=== PATIENT | female | born 1955 | race Caucasian/White ===

== ENCOUNTER → 2024-04-14 | Day surgery (SDC) | payer OTHER, BC ==
--- NOTE | 2024-04-14 14:06 | RAD REPORT ---
PROCEDURE: ULTRASOUND GUIDED BIOPSY Pre-procedure diagnosis: Left thyroid nodule Post-procedure diagnosis: Same as above. CLINICAL INDICATION: Histopathologic diagnosis and molecular characterization. Female, 69 years old. E04.1 Previous biopsy of same target: No Additional clinical history: None. COMPLICATIONS: No immediate complications. IMPRESSION: Percutaneous ultrasound-guided FNA biopsy of the dominant left thyroid nodule Additional procedure(s): None. PLAN: Specimen sent for evaluation. PROCEDURE DETAILS: Consent: Informed consent for the procedure including risks, benefits and alternatives was obtained a nd time-out was performed prior to the procedure. Preparation: The site was prepared and draped using all elements of maximal sterile barrier technique including sterile gloves, sterile gown, cap, mask, large sterile sheet, sterile ultrasound probe cover as needed, hand hygiene and cutaneous antisepsis with 2% chlorhexidine. Sedation: No sedation Imaging prior to biopsy: The patient was positioned supine and initial imaging of the neck was perfor med. Biopsy: Local anesthesia was administered. Under fluoroscopic guidance, multiple 25-gauge biopsy need les were advanced to the target nodule, and FNA aspiration/biopsy was performed. Biopsy needles were removed and a sterile dressing was applied. Number of specimens: 5 On-site biopsy touch preparation: None. Additional sampling description: None. Preliminary assessment of sample adequacy: Adequate Tract embolization: None. Post-biopsy imaging findings: No immediate complications seen. Contrast used: None. Estimated blood loss: Less than 10 mL.
== END ==
LOC: FNA 09:27
PROVIDERS: ATTEND Family Medicine
PROC: 0GBG3ZX Excision of Left Thyroid Gland Lobe, Percutaneous Approach, Diagnostic (ICD-10-PCS; principal; 2024-04-14)
DX: C73 Malignant neoplasm of thyroid gland (principal)
CPT/HCPCS: 88162

== ENCOUNTER 2024-08-04 18:25 | Emergency (ER) | payer OTHER, BC ==
[2024-08-04] MEDS ORDERED: LIDOCAINE HCL JELLY 2% 6 ML SYRINGE TOP ONE (19:23)
--- NOTE | 2024-08-04 20:32 | RAD REPORT ---
EXAMINATION: Facial Bones W/ Mpr CLINICAL INDICATION: Female, 69 years old. swelling under tongue TECHNIQUE: Axial images were obtained through the facial bones and orbits without intravenous contras t. Sagittal and coronal reconstructions were created from the data. One or more of the following dose reduction techniques were used: Automated exposure control, adjustment of the mA and/or kV accor ding to patient size, and/or iterative reconstruction. Unless otherwise specified, incidental findings do not require dedicated imaging follow-up. [id number]. COMPARISON: 03/21/24 FINDINGS: SOFT TISSUE: New 5 mm somewhat linear structure along the undersurface of the tongue suspicious for a fracture off of the inner surface of the mandible where there is likely a donor site. See image 29, series 201 and image 44, series 203. This is new since the prior CT from 03/21/24. BONES: No evidence of fracture, dislocation, or aggressive osseous lesions. No lesion of the visuali zed skull base or calvarium. ORBITS: The globes are intact. No intraorbital hemorrhage or mass. SINUSES: The paranasal sinuses and tympanomastoid cavities are predominantly clear. BRAIN: No acute abnormalities in the visualized intracranial structures. IMPRESSION: New fragment along the floor of the mouth and undersurface of the tongue suspicious for an acute frac ture off of the inner surface of the mandible. This is in the region of the right mandibular first and second premolars.
--- NOTE | 2024-08-04 21:51 | EDPHYS ---
Physician Documentation [facility] Name: Luz Pierce Age: 69 yrs Sex: Female : 1955 Arrival Date: 08/04/2024 Time: 18:25 Bed 11 Private MD: ED Physician Salbador Bledsoe HPI: 08/04 19:20 This 69 yrs old Female presents to ER via Ambulatory with complaints of Foreign Body in cp Mouth. 19:20 The patient presents with pain, sharp area irritating tongue. The problem is located in cp the underside of tongue. Onset: The symptoms/episode began/occurred noticed today. 19:20 Associated signs and symptoms: Pertinent positives: pain, Pertinent negatives: fever, cp swelling, mandibular, injury. Severity of symptoms: in the emergency department the symptoms are unchanged, despite home interventions. Historical: - Allergies: 18:41 Sulfa (Sulfonamide Antibiotics); ap3 - PMHx: 18:41 Hypertensive disorder; ap3 - Immunization history:: Client reports having NOT received the Covid vaccine. Flu vaccine is not up to date. - Infectious Disease History:: Denies. - Social history:: Smoking status: Patient denies any tobacco usage or history of. ROS: 19:25 Constitutional: history per hpi cp 19:25 ENT: Positive for pain under tongue, Negative for drainage from ear(s), ear pain, sore cp throat, difficulty swallowing, difficulty handling secretions, 19:25 Neck: Negative for pain with movement, pain at rest, stiffness, tenderness, bony tenderness, 19:25 Respiratory: Negative for cough, shortness of breath, wheezing, 19:25 Abdomen/GI: Negative for abdominal pain, nausea, vomiting, and diarrhea, 19:25 Skin: Negative for rash, 19:25 Neuro: Negative for altered mental status, headache, weakness, 19:25 All other systems are negative, Exam: 19:30 Constitutional: The patient appears in no acute distress, alert, awake, non-toxic, well cp developed, well nourished, 19:30 Head/Face: Normocephalic, atraumatic. cp 19:30 Eyes: Periorbital structures: appear normal, Conjunctiva: normal, no exudate, no injection, Sclera: no appreciated abnormality, Lids and lashes: appear normal, bilaterally, 19:30 ENT: External ear(s): are unremarkable, Nose: is normal, Mouth: Lips: moist, Oral mucosa: moist, Tongue: is normal, underside of tongue and lower palate right side tender papular mass, scant bleeding noted, 19:30 Neck: ROM/movement: is normal, is supple, without pain, no range of motions limitations, Lymph nodes: no appreciated lymphadenopathy, 19:30 Chest/axilla: Inspection: normal, 19:30 Cardiovascular: Rate: normal, 19:30 Respiratory: the patient does not display signs of respiratory distress, Respirations: normal, no use of accessory muscles, no retractions, Breath sounds: are clear throughout, no decreased breath sounds, 19:30 Abdomen/GI: Exam negative for discomfort, distension, Inspection: abdomen appears normal, 19:30 Skin: no rash present. Vital Signs: 18:40 BP 141 / 76; Pulse 83; Resp 18; Temp 98.3; Pulse Ox 100% ; Weight 89.81 kg; Height 5 ap3 ft. 2 in. ; 20:20 BP 121 / 82; Pulse 86; Resp 20; Pulse Ox 100% on R/A; kj2 21:24 BP 123 / 84; Pulse 88; Resp 20; Pulse Ox 100% on R/A; kj2 21:53 BP 124 / 86; Pulse 86; Resp 20; Temp 98; Pulse Ox 100% on R/A; kj2 18:40 Body Mass Index 36.21 (89.81 kg, 157.48 cm) ap3 MDM: 18:45 Medical Screening Exam initiated cp 19:30 Differential diagnosis: dental caries, dental abscess, pericoronitis, gingivostomatitis.cp 21:50 Data reviewed: vital signs, nurses notes, radiologic studies, CT scan, and as a result, cp I will discharge patient. 21:50 Counseling: I had a detailed discussion with the patient and/or guardian regarding the cp historical points, exam findings, and any diagnostic results supporting the discharge/admit diagnosis, radiology results, the need for outpatient follow up, for definitive care, an ENT specialist, to return to the emergency department if symptoms worsen or persist or if there are any questions or concerns that arise at home. 08/04 19:51 Order name: CT Facial Bones W/O Con; Complete Time: 20:58 cp Administered Medications: 19:25 Drug: Lidocaine Mucous Membrane Gel 2 % 1 ea 15 ml Mucous Membrane once Volume: 15 ml; bm8 Route: Mucous Membrane; 21:34 Follow up: Response: No adverse reaction kj2 Disposition Summary: 08/04/24 21:51 Discharge Ordered Notes: Location: Home cp Problem: new cp Symptoms: have improved cp Condition: Stable cp Diagnosis - Disorder of teeth and supporting structures, unspecified cp Followup: cp - With: John Bloom DDS - When: 5 - 6 days - Reason: Recheck today's complaints Discharge Instructions: - Discharge Summary Sheet cp - Maxillofacial Fracture cp Forms: - Medication Reconciliation Form cp - Antibiotic Education cp - Prescription Opioid Use cp - Patient Portal Instructions cp - Leadership Thank You Letter cp Prescriptions: - Amoxicillin 875 mg Oral Tablet - take 1 tablet ORAL route every 12 hours for 10 days; 20 tablet; Refills: 0, cp Product Selection Permitted Addendum: 08/06/2024 07:01 Co-signature as Attending Physician, Salbador Bledsoe MD I reviewed the patient's care r n provided by the Advanced Practice Provider and agree with the diagnosis and treatment plan. Signatures: Dispatcher [employer] Salbador Porras MD MD rn Page, Corey, PA PA cp Maegan Díaz RN RN ap3 Devin Santana RN RN bm8 Fernanda Trinidad RN kj2
--- NOTE | 2024-08-04 21:51 | ER ---
Nurse's Notes [facility] Name: Luz Pierce Age: 69 yrs Sex: Female : 1955 Arrival Date: 08/04/2024 Time: 18:25 Bed 11 Private MD: Diagnosis: Disorder of teeth and supporting structures, unspecified Presentation: 08/04 18:40 Chief complaint: Patient states: she feels like there is something sharp under her ap3 tongue that is scraping her tongue every time she swallows. patient reports she can feel it with her finger, and states that it is sharp. patient reports that she noticed it today. Coronavirus screen: At this time, the client does not indicate any symptoms associated with coronavirus-19. Ebola Screen: No symptoms or risks identified at this time. Initial Sepsis Screen: Does the patient meet any 2 criteria? No. Patient's initial sepsis screen is negative. Does the patient have a suspected source of infection? No. Patient's initial sepsis screen is negative. Risk Assessment: Do you want to hurt yourself or someone else? Patient reports no desire to harm self or others. Onset of symptoms was August 04, 2024. 18:40 Method Of Arrival: Ambulatory ap3 18:40 Acuity: LYNNETTE 4 ap3 Triage Assessment: 18:42 General: Appears in no apparent distress. Behavior is calm, cooperative, appropriate ap3 for age. Pain: Complains of pain in tongue. EENT: Reports pain in under tongue. Neuro: Level of Consciousness is awake, alert, obeys commands, Oriented to person, place, time, situation, Appropriate for age. Cardiovascular: Patient's skin is warm and dry. Respiratory: Airway is patent Respiratory effort is even, unlabored, Respiratory pattern is regular, symmetrical. Historical: - Allergies: 18:41 Sulfa (Sulfonamide Antibiotics); ap3 - PMHx: 18:41 Hypertensive disorder; ap3 - Immunization history:: Client reports having NOT received the Covid vaccine. Flu vaccine is not up to date. - Infectious Disease History:: Denies. - Social history:: Smoking status: Patient denies any tobacco usage or history of. Screenin:42 [facility] ED Fall Risk Assessment (Adult) History of falling in the last 3 months, ap3 including since admission No falls in past 3 months (0 pts) Confusion or Disorientation No (0 pts) Intoxicated or Sedated No (0 pts) Impaired Gait No (0 pts) Mobility Assist Device Used No (0 pt) Altered Elimination No (0 pt) Score/Fall Risk Level 0 - 2 = Low Risk Oriented to surroundings, Maintained a safe environment, Educated pt \T\ family on fall prevention, incl call for assistance when getting out of bed, Assessed \T\ reinforced patient's understanding of fall precautions, Hourly rounding (assess needs \T\ fall precautionary measures) done, Used ambulatory aids as needed (educated on \T\ assisted with). Abuse screen: Denies threats or abuse. Nutritional screening: No deficits noted. Tuberculosis screening: No symptoms or risk factors identified. Assessment: 19:20 General: Appears in no apparent distress. Behavior is calm, cooperative. Pain: kj2 Complains of pain in mouth and tongue Pain currently is 4 out of 10 on a pain scale. Neuro: Level of Consciousness is awake, alert, obeys commands. Cardiovascular: Patient's skin is warm and dry. Respiratory: Airway is patent Respiratory effort is unlabored. GI: : No signs and/or symptoms were reported regarding the genitourinary system. 20:20 Reassessment: Patient appears in no apparent distress at this time. Patient and/or kj2 family updated on plan of care and expected duration. Pain level reassessed. Patient is alert, oriented x 3, equal unlabored respirations, skin warm/dry/pink. 21:24 Reassessment: Patient appears in no apparent distress at this time. Patient and/or kj2 family updated on plan of care and expected duration. Pain level reassessed. Patient is alert, oriented x 3, equal unlabored respirations, skin warm/dry/pink. 21:53 Reassessment: Patient appears in no apparent distress at this time. Patient and/or kj2 family updated on plan of care and expected duration. Pain level reassessed. Patient is alert, oriented x 3, equal unlabored respirations, skin warm/dry/pink. Vital Signs: 18:40 BP 141 / 76; Pulse 83; Resp 18; Temp 98.3; Pulse Ox 100% ; Weight 89.81 kg; Height 5 ap3 ft. 2 in. ; 20:20 BP 121 / 82; Pulse 86; Resp 20; Pulse Ox 100% on R/A; kj2 21:24 BP 123 / 84; Pulse 88; Resp 20; Pulse Ox 100% on R/A; kj2 21:53 BP 124 / 86; Pulse 86; Resp 20; Temp 98; Pulse Ox 100% on R/A; kj2 18:40 Body Mass Index 36.21 (89.81 kg, 157.48 cm) ap3 ED Course: 18:28 Patient arrived in ED. cj3 18:41 Triage completed. ap3 18:43 Arm band placed on right wrist. ap3 18:45 George Rhoades PA is PHCP. cp 18:45 Salbador Bledsoe MD is Attending Physician. cp 19:20 Patient has correct armband on for positive identification. Bed in low position. Call kj2 light in reach. Adult w/ patient. Provided Education on: call light. 19:42 Fernanda Trinidad, RN is Primary Nurse. kj2 19:47 No provider procedures requiring assistance completed. kj2 20:17 CT Facial Bones W/O Con In Process Unspecified. EDMS 21:50 John Bloom DDS is Referral Physician. cp 21:55 Patient did not have IV access during this emergency room visit. kj2 Administered Medications: 19:25 Drug: Lidocaine Mucous Membrane Gel 2 % 1 ea 15 ml Mucous Membrane once Volume: 15 ml; bm8 Route: Mucous Membrane; 21:34 Follow up: Response: No adverse reaction kj2 Medication: 19:47 VIS not applicable for this client. kj2 Outcome: 21:51 Discharge ordered by MD. cp 21:54 Discharged to home ambulatory, with family, kj2 21:54 Condition: stable 21:54 Discharge instructions given to patient, family, Instructed on discharge instructions, follow up and referral plans. Demonstrated understanding of instructions, follow-up care, 21:59 Patient left the ED. kj2 Signatures: Dispatcher [employer] EDMS George Rhoades PA PA cp Maegan Díaz RN RN ap3 Devin Santana RN RN bm8 Fernanda Trinidad RN RN kj2 Laura Rondon cj3
[2024-08-04 22:04] VITALS: O2SAT 100
[2024-08-04 22:09] VITALS: BP 124/86; TEMP 98
== END 2024-08-04 21:59 | disposition home or self-care (01) ==
LOC: ER 18:25
DX: K08.89 Other specified disorders of teeth and supporting structures (principal)
CPT/HCPCS: 70486; 76377; 99283